=== PATIENT | male | born 1980 | race Hispanic/Latino ===

== ENCOUNTER 2016-10-19 13:55 | Emergency (ER) | payer MEDICAID ==
[2016-10-19 13:56] VITALS: BMI 22.9
[2016-10-19 14:17] VITALS: BP 128/78; PULSE 79; RESP 18; TEMP 98.1; O2SAT 100
[2016-10-19 15:01] LABS: ALB/GLOB RATIO 1.1 (1.0-2.1); ALKALINE PHOSPHATASE 96 U/L (38-126); ALT/SGPT 45 U/L (21-72); AST/SGOT 30 U/L (17-59); BILIRUBIN,TOTAL 0.8 mg/dl (0.2-1.3); BLOOD UREA NITROGEN 22 mg/dl (9-20); CALCIUM 9.4 mg/dL (8.4-10.2); CARBON DIOXIDE 26 mmol/L (22-30); CHLORIDE 101 mmol/L (98-107); GFR AFRICAN-AMERICAN > 60; GLUCOSE,RANDOM 115 mg/dL (75-110); POTASSIUM 3.5 MMOL/L (3.6-5.0); SODIUM 139 mmol/l (132-148); TOTAL PROTEIN 8.2 G/DL (6.3-8.2)
[2016-10-19 15:14] LABS: BASO % 0.3 % (0.0-2.0); EOS % 0.1 % (0.0-4.0); HEMATOCRIT 42.9 % (35.0-51.0); LYMPH # 1.5 K/uL (1.0-4.3); LYMPH % 13.5 % (20.0-40.0); MEAN CELL VOLUME 95.6 fl (80.0-94.0); MEAN CORPUSCULAR HEMOGLOBIN 32.2 pg (27.0-31.0); MEAN CORPUSCULAR HGB CONC 33.6 g/dL (33.0-37.0); MONO # 0.5 K/uL (0.0-0.8); MONO % 4.4 % (0.0-10.0); NEUT # 9.2 K/uL (1.8-7.0); NEUT % 81.7 % (50.0-75.0); RED CELL DISTRIBUTION WIDTH 12.9 % (11.5-14.5); WHITE BLOOD COUNT 11.2 K/uL (4.8-10.8)
--- NOTE | 2016-10-19 15:19 | ED PDOC ---
HPI: General Adult Time Seen by Provider: 10/19/16 14:16 Chief Complaint (Nursing): Fever Chief Complaint (Provider): Fever, cough History Per: Patient History/Exam Limitations: no limitations Onset/Duration Of Symptoms: Days, Persistent Have you had recent travel within the past 21 days to any of the following countries: [place], [place], [place] or [place]?: No Current Symptoms Are (Timing): Still Present Severity: Moderate Additional History Per: Patient Additional Complaint(s): The pt is a 35yo male with PMHx of HIV, unknown viral load and CD4 count, presents to the ED for evaluation of tactile fever, cough, generalized myalgias for the past 2 weeks. Pt reports associated sore throat and states the cough is non-productive; pt reports visiting his PCP 1 week ago and states he has recently finished a [employer] course with no relief for his symptoms. Pt currently offers no additional medical complaints. Did not take antipyretics. PMD: Karson Zuñiga Past Medical History Reviewed: Historical Data, Nursing Documentation, Vital Signs Vital Signs: Last Vital Signs Temp 98.1 F 10/19/16 14:14 Pulse 79 10/19/16 14:14 Resp 18 10/19/16 14:14 BP 128/78 10/19/16 14:14 Pulse Ox 100 10/19/16 18:27 - Medical History PMH: Bronchitis, Gastritis, HIV, Personality Disorder (borderline - currently taking medication for it) Denies: Chronic Kidney Disease - Surgical History Surgical History: No Surg Hx - Family History Family History: States: Unknown Family Hx - Immunization History Hx Tetanus Toxoid Vaccination: No Hx Influenza Vaccination: No Hx Pneumococcal Vaccination: No - Home Medications Home Medications: Ambulatory Orders Medication Instructions Recorded Acetaminophen/Codeine 1 tab PO Q6H 05/19/16 Ciprofloxacin 0.3% [Ciloxan 0.3% 1 drop Q2H 05/19/16 Ophth SOLN] Topamax 05/19/16 Truvada 100 mg-150 mg Tablet 05/19/16 Albuterol 0.083% [Albuterol 0.083% 3 ml IH Q6H PRN #30 neb 10/19/16 Inhal Rosalba (2.5 mg/3 ml) UD] Benzonatate [Tessalon Perles] 100 mg PO TID PRN #15 sgl 10/19/16 Nebulizer [Compact Compressor 1 dev XX PRN PRN #1 dev 10/19/16 Nebulizer] - Allergies Allergies/Adverse Reactions: Allergies Allergy/AdvReac Type Severity Reaction Status Date / Time No Known Allergies Allergy Verified 11/22/15 19:55 Review of Systems ROS Statement: Except As Marked, All Systems Reviewed And Found Negative Constitutional: Positive for: Fever (tactile), Chills, Malaise ENT: Positive for: Throat Pain Respiratory: Positive for: Cough. Negative for: Sputum Physical Exam - Reviewed Nursing Documentation Reviewed: Yes Vital Signs Reviewed: Yes - Physical Exam Appears: Positive for: Well, Non-toxic, No Acute Distress (Speaking full sentences) Head Exam: Positive for: ATRAUMATIC, NORMAL INSPECTION, NORMOCEPHALIC Skin: Positive for: Normal Color, Warm, DRY Eye Exam: Positive for: EOMI, Normal appearance, PERRL ENT: Positive for: Normal ENT Inspection Neck: Positive for: Normal, Supple Cardiovascular/Chest: Positive for: Regular Rate, Rhythm Respiratory: Positive for: Normal Breath Sounds. Negative for: Respiratory Distress Neurologic/Psych: Positive for: Alert, Oriented - Laboratory Results Result Diagrams: 10/19/16 14:46 10/19/16 14:46 - ECG O2 Sat by Pulse Oximetry: 100 (RA) Pulse Ox Interpretation: Normal - Radiology X-Ray: Read By Radiologist X-Ray Interpretation: No Acute Disease Medical Decision Making Medical Decision Making: Time: 1432 Impression: URI Plan: * CXR * Rapid flu * rapid Strep * reasses Scribe Attestation: Documented by Raquel Thomas acting as a scribe for Inocencia Ireland MD. Provider Attestation: All medical record entries made by the Scribe were at my direction and personally dictated by me. I have reviewed the chart and agree that the record accurately reflects my personal performance of the history, physical exam, medical decision making, and the department course for this patient. I have also personally directed, reviewed, and agree with the discharge instructions and disposition. Disposition - Clinical Impression Clinical Impression: URI (upper respiratory infection) - Disposition Referrals: Karson Zuñiga MD [Family Provider] - Disposition: Routine/Home Disposition Time: 16:50 Condition: STABLE Prescriptions: Albuterol 0.083% [Albuterol 0.083% Inhal Rosalba (2.5 mg/3 ml) UD] 3 ml IH Q6H PRN # 30 neb PRN Reason: Shortness Of Breath Benzonatate [Tessalon Perles] 100 mg PO TID PRN #15 sgl PRN Reason: Cough Nebulizer [Compact Compressor Nebulizer] 1 dev XX PRN PRN #1 dev PRN Reason: Shortness Of Breath Instructions: Upper Respiratory Infection (ED) Forms: [facility] ED School/Work Excuse
--- NOTE | 2016-10-19 16:20 | RAD ---
HISTORY: Cough COMPARISON: No prior. TECHNIQUE: Chest PA and lateral FINDINGS: LUNGS: No active pulmonary disease. PLEURA: No significant pleural effusion identified. No pneumothorax apparent. CARDIOVASCULAR: Normal. OSSEOUS STRUCTURES: No significant abnormalities. VISUALIZED UPPER ABDOMEN: Normal. OTHER FINDINGS: None. IMPRESSION: No active disease.
[2016-10-19 16:35] LABS: PARTIAL THROMBOPLASTIN TIME 30.6 SECONDS (23.3-32.5)
[2016-10-19] MEDS ORDERED: Potassium Chloride 20 mEq ER Tab PO STA (16:39)
== END 2016-10-19 17:12 | disposition home or self-care (01) ==
LOC: H.ER 13:55
DX: J06.9 Acute upper respiratory infection, unspecified (principal); R05 Cough; R50.9 Fever, unspecified